=== PATIENT | male | born 1985 | race Caucasian/White ===

== ENCOUNTER 2024-06-05 20:41 | Observation (INO) | payer OTHER ==
[2024-06-05] MEDS ORDERED: Sodium Chloride 0.9% 20 ML SDV IV PRN (20:49)
[2024-06-05] MEDS ORDERED: Sodium Chloride 0.9% 2.5 ML Syringe FLUSH PRN (20:49)
[2024-06-05] MEDS ORDERED: Sodium Chloride 0.9% 10 ML Syringe FLUSH PRN (20:49)
[2024-06-05 20:53] LABS: BASOPHILS ABSOLUTE AUTO 0.08 K/uL (0.00-0.20); BASOPHILS PERCENT AUTO 0.6 % (0.0-1.0); EOSINOPHILS ABSOLUTE AUTO 0.31 K/uL (0.00-0.45); EOSINOPHILS PERCENT AUTO 2.3 % (0.0-6.0); HEMATOCRIT 45.4 % (42.0-52.0); HEMOGLOBIN 15.4 g/dL (14.0-18.0); IMMATURE GRAN ABSOLUTE AUTO 0.13 K/uL (0.00-0.05); LYMPHOCYTES ABSOLUTE AUTO 2.06 K/uL (1.00-4.80); LYMPHOCYTES PERCENT AUTO 15.6 % (24.0-44.0); MEAN CORPUSCULAR HEMOGLOBIN 30.7 pg (28.0-32.0); MEAN CORPUSCULAR HGB CONC 33.9 g/dL (32.0-36.0); MEAN CORPUSCULAR VOLUME 90.6 fL (83.0-99.0); MEAN PLATELET VOLUME 9.9 fL (9.4-12.4); MONOCYTES ABSOLUTE AUTO 0.58 K/uL (0.00-0.80); MONOCYTES PERCENT AUTO 4.4 % (0.0-8.0); NEUTROPHILS ABSOLUTE AUTO 10.06 K/uL (1.80-7.70); NEUTROPHILS PERCENT AUTO 76.1 % (41.0-71.0); PLATELET COUNT,PLT 335 K/uL (150-400); RED BLOOD CELL COUNT 5.01 M/uL (4.52-5.90); WHITE BLOOD CELL COUNT,WBC 13.22 K/uL (3.9-11.3)
[2024-06-05] MEDS: Iopamidol 755 MG/ML 500 ML Multipack Bottle IVPUSH ONE (21:22)
[2024-06-05] MEDS: Acetaminophen 500 MG Tab PO ONE (21:24)
[2024-06-05] MEDS: Ondansetron 4 MG/2 ML SDV IVPUSH ONE (21:26)
[2024-06-05 21:28] LABS: INR 1.04 (0.86-1.11)
[2024-06-05] MEDS: Ketorolac 30 MG/ML SDV IVPUSH ONE (21:29)
[2024-06-05 21:36] LABS: A/G RATIO 1.1 (0.9-1.6); ALBUMIN 3.4 g/dL (3.4-5.0); BILIRUBIN TOTAL 0.2 mg/dL (0.2-1.0); CALCIUM 9.1 mg/dL (8.5-10.1); CREATININE 1.3 mg/dL (0.8-1.3); EST CRCL DRUG DOSING (CG) 89.58 mL/min; POTASSIUM,K 4.1 mmol/L (3.5-5.1); PROTEIN TOTAL,TP 6.6 g/dL (6.4-8.2)
[2024-06-05] MEDS: Morphine 4 MG/ML Syringe IVPUSH PRN (21:52)
[2024-06-05] MEDS ORDERED: Morphine 4 MG/ML Syringe IVPUSH PRN (23:02)
[2024-06-05] MEDS ORDERED: Naloxone 0.4 MG/ML SDV IVPUSH PRN ×2 (23:02)
[2024-06-05] MEDS: Ondansetron 4 MG/2 ML SDV ONE (23:53)
[2024-06-05] MEDS: Sodium Chloride 0.9% 1,000 ML IV ONE (23:56)
[2024-06-06] MEDS: Gabapentin 300 MG Cap PO ONE ×2 (00:18→01:16)
[2024-06-06] MEDS: Ibuprofen 600 MG Tab PO SCH (01:21)
[2024-06-06] MEDS: Nicotine 21 MG/24 Hr Patch TRDERM SCH (04:50)
[2024-06-06] MEDS: oxyCODONE 5 MG Tab PO PRN (10:20)
== END 2024-06-06 12:58 | disposition home or self-care (01) ==
LOC: MW.ED 20:41 → MW.MS 22:59
PROVIDERS: ADMIT Surgery; ATTEND Surgery
DX: S22.41XA Multiple fractures of ribs, right side, initial encounter for closed fracture (principal); K21.9 Gastro-esophageal reflux disease without esophagitis; Z79.899 Other long term (current) drug therapy; V43.52XA Car driver injured in collision with other type car in traffic accident, initial encounter; Z88.5 Allergy status to narcotic agent; Z88.1 Allergy status to other antibiotic agents
CPT/HCPCS: 36415; 71260; 73552; 74177; 80053; 80307; 83690; 85025; 85610; 93005; 96374; 96375; 99285; A9270; G0378; J1885; J2270; J2405; J7030; Q9967; 93010; 99284